=== PATIENT | male | born 1995 | race Caucasian/White ===

== ENCOUNTER 2025-02-02 09:05 | Outpatient (CLI) | payer OTHER, SELFPAY ==
[2025-02-02 18:27] LABS: Hematocrit 48.3 % (42.0-52.0); Hemoglobin 15.3 g/dL (14.0-18.0); Mean Corpuscular HGB Conc 31.7 g/dl (32-36); Mean Corpuscular Hemoglobin 28.4 pg (26-34); Mean Corpuscular Volume 89.8 fl (80-100); Platelet Count Result 288 k/mm3 (150-375); Red Blood Count 5.38 M/mm3 (4.6-6.20); White Blood Count 10.1 K/mm3 (4.5-10.0)
[2025-02-02 18:39] LABS: Alanine Aminotransferase 20 U/L (6-50); Albumin Level 4.6 g/dL (3.5-5.1); Alkaline Phosphatase 62 U/L (38-126); Anion Gap 8 mmol/L (4-12); Aspartate Amino Transferase 71 U/L (17-59); Bilirubin,Total 0.4 mg/dL (0.2-1.3); Blood Urea Nitrogen 16 mg/dL (9-20); Calcium 9.3 mg/dL (8.4-10.2); Carbon Dioxide 26 mmol/L (22-30); Chloride 104 mmol/L (98-107); Cholesterol 153 mg/dL (0-200); Estimated Glomerular Filt Rate > 60; Glucose 98 mg/dL (65-110); HDL Direct 70 mg/dL; Iron 68 ug/dL (49-181); Potassium 4.3 mmol/L (3.4-5.0); Sodium 138 mmol/L (137-145); Total Protein 7.7 g/dL (6.3-8.2); Triglycerides 57 mg/dL (<150)
[2025-02-02 18:50] LABS: Percent Iron Saturation 21 % (20-50)
[2025-02-02 18:57] LABS: Free T4 Free Thyroxine 0.96 ng/dL (0.78-2.19)
[2025-02-02 19:15] LABS: Ferritin 51.20 ng/mL (17.9-464)
[2025-02-02 19:16] LABS: Thyroid Stimulating Hormone 0.890 uIU/mL (0.465-4.680)
[2025-02-02 19:52] LABS: Vitamin B12 480.0 pg/mL (239-931)
== END 2025-02-02 09:06 | disposition home or self-care (01) ==
LOC: ANHBWCLAB 09:07
PROVIDERS: PCP Nurse Practitioner Adult Health; Visit Provider Nurse Practitioner Adult Health
DX: Z00.00 Encounter for general adult medical examination without abnormal findings (principal)
CPT/HCPCS: 36415; 80053; 80061; 82607; 82728; 82746; 83540; 83550; 84439; 84443; 85027